=== PATIENT | female | born 1945 | race African-American/Black ===

== ENCOUNTER 2023-11-11 11:51 | Inpatient (IN) | payer OTHER ==
[2023-11-11] MEDS ORDERED: Sodium Chloride 0.9% 100 ML ONE (13:09)
[2023-11-11] MEDS ORDERED: Piperacillin/Tazobactam 4.5 GM VIAL ONE (13:09)
[2023-11-11] MEDS ORDERED: Piperacillin/Tazobactam 4.5 GM in Sodium Chloride 0.9% 100 ML IVPB SCH (13:15)
[2023-11-11 13:42] LABS: #Eosinphils 0.1 thou/uL (0.0-0.7); #Monocytes 1.2 thou/uL (0.11-0.59); #Neutrophils 13.6 thou/uL (1.40-6.50); %Basophils 0.2 % (0.0-1.0); %Eosinophils 0.4 % (0.0-10.0); %Lymphocytes 13.1 % (21.0-51.0); %Monocytes 6.9 % (0.0-10.0); %Neutrophils 78.6 % (42.0-75.0); Hematocrit 24.9 % (36.0-47.0); Hemoglobin 8.4 g/dL (12.0-16.0); Mean Corpuscular HGB CONC 33.7 g/dL (32.0-36.0); Mean Corpuscular Hemoglobin 27.5 pg (27.0-31.0); Mean Corpuscular Volume 81.6 fl (78.0-98.0); Mean Platelet Volume 9.8 fL (7.4-10.4); Platelet Count 256 10x3/uL (130-400); RBC Distribution Width 24.6 % (11.5-14.5); Red Blood Cell (RBC) Count 3.05 mill/uL (4.20-5.40); White Blood Cell (WBC) Count 17.3 10x3/uL (4.8-10.8)
[2023-11-11 14:14] LABS: ALT (SGPT) 14 U/L (8-55); AST (SGOT) 48 U/L (5-34); Albumin 1.9 g/dL (3.4-4.8); Alkaline Phosphatase 459 U/L (40-110); Anion Gap 11 mmol/L (10-20); BUN (Urea Nitrogen) 25 mg/dL (9.8-20.1); Bilirubin, Total 0.9 mg/dL (0.2-1.2); CRP (Inflammatory) 3.41 mg/dL (= or < 0.5); Calc. Creatinine Clearance 0 mL/min (70-130); Calcium 7.8 mg/dL (7.8-10.44); Carbon Dioxide 21 mmol/L (23-31); Chloride 114 mmol/L (98-107); Estimated GFR 21; Globulin 4.1 g/dL (2.4-3.5); Glucose 99 mg/dL (83-110); Potassium 3.1 mmol/L (3.5-5.1); Sodium 143 mmol/L (136-145)
[2023-11-11] MEDS ORDERED: Vancomycin (BATCH) 2 GM/500 ML BAG ONE (14:39)
[2023-11-11] MEDS ORDERED: HYDROcodone/Acetaminophen 5/325 mg Tablet PO PRN (15:32)
[2023-11-11] MEDS ORDERED: Acetaminophen 325 MG TAB PO PRN (15:32)
[2023-11-11] MEDS ORDERED: Ondansetron PF 4 MG/2 ML Vial IVP PRN (15:32)
[2023-11-11 17:34] LABS: Troponin I 0.025 ng/mL (< 0.028)
[2023-11-11] MEDS ORDERED: Metoprolol Tartrate 25 MG TAB PO SCH (21:00)
[2023-11-11] MEDS ORDERED: Famotidine 20 MG TAB PO SCH (21:00)
[2023-11-11] MEDS: Linezolid 600 MG in Premix 1 BAG IVPB SCH (21:58)
[2023-11-11] MEDS: Ascorbic Acid 500 mg Chewable Tablet PO SCH (22:11)
[2023-11-11] MEDS: Ferrous Sulfate 325 MG TAB PO SCH (22:12)
[2023-11-11] MEDS: Gabapentin 300 MG CAP PO SCH (22:12)
[2023-11-12] MEDS: Piperacillin/Tazobactam 3.375 GM in Sodium Chloride 0.9% 100 ML IVPB SCH ×2 (00:15→09:07)
[2023-11-12] MEDS ORDERED: Albumin 25% 25 GM (100 mL) BOT IVPB SCH (01:00)
[2023-11-12 01:20] LABS: #Monocytes 0.9 thou/uL (0.11-0.59); #Neutrophils 12.7 thou/uL (1.40-6.50); %Basophils 0.1 % (0.0-1.0); %Eosinophils 0.1 % (0.0-10.0); %Lymphocytes 10.3 % (21.0-51.0); %Monocytes 5.9 % (0.0-10.0); %Neutrophils 82.7 % (42.0-75.0); Hematocrit 24.6 % (36.0-47.0); Hemoglobin 7.9 g/dL (12.0-16.0); Mean Corpuscular HGB CONC 32.1 g/dL (32.0-36.0); Mean Corpuscular Hemoglobin 27.6 pg (27.0-31.0); Mean Platelet Volume 10.1 fL (7.4-10.4); Platelet Count 223 10x3/uL (130-400); RBC Distribution Width 24.6 % (11.5-14.5); Red Blood Cell (RBC) Count 2.86 mill/uL (4.20-5.40); White Blood Cell (WBC) Count 15.4 10x3/uL (4.8-10.8)
[2023-11-12 01:40] LABS: ALT (SGPT) 14 U/L (8-55); AST (SGOT) 51 U/L (5-34); Albumin 1.7 g/dL (3.4-4.8); Alkaline Phosphatase 463 U/L (40-110); Anion Gap 14 mmol/L (10-20); BUN (Urea Nitrogen) 27 mg/dL (9.8-20.1); Bilirubin, Total 0.9 mg/dL (0.2-1.2); Calc. Creatinine Clearance 0 mL/min (70-130); Calcium 7.6 mg/dL (7.8-10.44); Carbon Dioxide 17 mmol/L (23-31); Chloride 115 mmol/L (98-107); Estimated GFR 20; Glucose 124 mg/dL (83-110); Magnesium 2.4 mg/dL (1.6-2.6); Potassium 3.2 mmol/L (3.5-5.1); Protein, Total 5.7 g/dL (5.8-8.1); Sodium 143 mmol/L (136-145)
[2023-11-12 01:43] LABS: Troponin I 0.014 ng/mL (< 0.028)
[2023-11-12] MEDS ORDERED: Furosemide 40 MG (4 mL) VIAL SLOW IVP SCH (02:15)
[2023-11-12] MEDS ORDERED: NOREPINEPHRINE 8 MG/250 ML-D5W 250 ML IVPB SCH (02:15)
[2023-11-12] MEDS ORDERED: Glucagon 1 MG/ML KIT IM PRN (03:12)
[2023-11-12] MEDS ORDERED: Dextrose 5% in Water 1,000 ML IV PRN (03:12)
[2023-11-12] MEDS ORDERED: Dextrose 50% Abboject 50 ML SYRINGE SLOW IVP PRN (03:12)
[2023-11-12] MEDS ORDERED: HumaLOG 300 UNITS/3 ML VIAL SC PRN (03:12)
[2023-11-12] MEDS: Potassium Chloride 20 MEQ in Premix 1 BAG IVPB SCH ×2 (04:40→06:22)
[2023-11-12] MEDS: Albumin 25% 25 GM (100 mL) BOT IVPB SCH ×4 (04:40→23:33)
[2023-11-12] MEDS: Heparin 5,000 UNITS/ML VIAL SC SCH ×2 (08:55→23:33)
[2023-11-12] MEDS: Linezolid 600 MG in Premix 1 BAG IVPB SCH (08:55)
[2023-11-12] MEDS: Insulin Glargine 30 UNITS/0.3 ML VIAL SC SCH (08:55)
[2023-11-12] MEDS ORDERED: Non-Formulary Item 1 EACH (Zinc Gluconate [Zinc] 50 MG Tablet) PO SCH (09:00)
[2023-11-12] MEDS: Calcium Carbonate 600 MG TAB PO SCH (09:01)
[2023-11-12] MEDS: Ascorbic Acid 500 mg Chewable Tablet PO SCH ×2 (09:01→23:00)
[2023-11-12] MEDS: Ferrous Sulfate 325 MG TAB PO SCH ×2 (09:03→23:01)
[2023-11-12] MEDS: Gabapentin 300 MG CAP PO SCH ×3 (09:03→23:01)
[2023-11-12 09:41] LABS: #Monocytes 1.1 thou/uL (0.11-0.59); %Basophils 0.1 % (0.0-1.0); %Eosinophils 0.2 % (0.0-10.0); %Lymphocytes 14.3 % (21.0-51.0); %Monocytes 7.4 % (0.0-10.0); %Neutrophils 76.6 % (42.0-75.0); Hematocrit 20.6 % (36.0-47.0); Hemoglobin 6.9 g/dL (12.0-16.0); Mean Corpuscular HGB CONC 33.5 g/dL (32.0-36.0); Mean Corpuscular Hemoglobin 28.2 pg (27.0-31.0); Mean Corpuscular Volume 84.1 fl (78.0-98.0); Mean Platelet Volume 9.8 fL (7.4-10.4); Platelet Count 205 10x3/uL (130-400); RBC Distribution Width 24.3 % (11.5-14.5); Red Blood Cell (RBC) Count 2.45 mill/uL (4.20-5.40); White Blood Cell (WBC) Count 14.3 10x3/uL (4.8-10.8)
[2023-11-12] MEDS ORDERED: Lidocaine 1% PF 5 ML VIAL ONE (09:51)
[2023-11-12] MEDS ORDERED: PROPOFOL 20 ML ONE (09:51)
[2023-11-12] MEDS ORDERED: Rocuronium Bromide 10 MG/ML (10ML VIAL) ONE (09:51)
[2023-11-12] MEDS ORDERED: fentaNYL PF 100 MCG/2 ML SYRINGE ONE (09:51)
[2023-11-12] MEDS ORDERED: Midazolam HCl 2 mg/2 ml Vial ONE (09:54)
[2023-11-12] MEDS ORDERED: Heparin 10,000 UNITS/ 10 ML VIAL ONE (10:00)
[2023-11-12 10:01] LABS: Troponin I 0.017 ng/mL (< 0.028)
[2023-11-12 10:02] LABS: ALT (SGPT) 12 U/L (8-55); AST (SGOT) 40 U/L (5-34); Alkaline Phosphatase 417 U/L (40-110); Anion Gap 16 mmol/L (10-20); BUN (Urea Nitrogen) 27 mg/dL (9.8-20.1); Bilirubin, Total 1.6 mg/dL (0.2-1.2); Calc. Creatinine Clearance 25 mL/min (70-130); Calcium 8.1 mg/dL (7.8-10.44); Carbon Dioxide 17 mmol/L (23-31); Chloride 114 mmol/L (98-107); Estimated GFR 18; Globulin 3.2 g/dL (2.4-3.5); Glucose 146 mg/dL (83-110); Potassium 3.7 mmol/L (3.5-5.1); Protein, Total 6.2 g/dL (5.8-8.1); Sodium 143 mmol/L (136-145)
[2023-11-12 10:25] LABS: Anisocytosis MARKED = >30 cells HPF (0-5); Burr Cells SLIGHT = 2-5 cells HPF (0-1); CellaVision Operator ID LAB.KW3; Macrocytosis MARKED = >30 cells HPF (0-5); Platelet Adequacy Comment Platelets Normal; Polychromasia MODERATE = 3-4 cells HPF (0-2); Target Cells SLIGHT = 2-5 cells HPF (0-1)
[2023-11-12] MEDS ORDERED: PHENYLEPHRINE-NS 100 MCG/ML 10 ML SYRINGE ONE (10:39)
[2023-11-12] MEDS ORDERED: ePHEDrine Sulfate 50 MG/10 ML VIAL ONE (10:40)
[2023-11-12] MEDS ORDERED: Ondansetron PF 4 MG/2 ML Vial ONE (11:49)
[2023-11-12] MEDS ORDERED: SUGAMMADEX SODIUM 200 MG/2 ML VIAL ONE (11:50)
[2023-11-12] MEDS ORDERED: traMADol HCl 50 MG TAB PO PRN (12:28)
[2023-11-12] MEDS ORDERED: fentaNYL 50 mcg/mL 1 mL Vial SLOW IVP PRN (12:31)
[2023-11-12 14:24] LABS: Hematocrit 27.8 % (36.0-47.0); Hemoglobin 9.6 g/dL (12.0-16.0); Platelet Count 182 10x3/uL (130-400)
[2023-11-12] MEDS: cefTRIAXone\\ROCEPHIN 1 GM in Sodium Chloride 0.9% 100 ML IVPB SCH (16:29)
[2023-11-12 16:31] LABS: Anion Gap 13 mmol/L (10-20); BUN (Urea Nitrogen) 27 mg/dL (9.8-20.1); Calc. Creatinine Clearance 25 mL/min (70-130); Calcium 7.8 mg/dL (7.8-10.44); Carbon Dioxide 18 mmol/L (23-31); Chloride 116 mmol/L (98-107); Estimated GFR 18; Glucose 156 mg/dL (83-110); Potassium 3.4 mmol/L (3.5-5.1); Sodium 144 mmol/L (136-145)
[2023-11-12] MEDS: HumaLOG 300 UNITS/3 ML VIAL SC PRN (16:37)
[2023-11-12] MEDS ORDERED: Famotidine 20 MG TAB PO SCH (21:00)
[2023-11-12] MEDS: Sodium Bicarbonate Tab 325 MG TAB PO SCH (23:01)
[2023-11-13 04:18] LABS: #Eosinphils 0.1 thou/uL (0.0-0.7); #Monocytes 0.9 thou/uL (0.11-0.59); #Neutrophils 8.5 thou/uL (1.40-6.50); %Basophils 0.2 % (0.0-1.0); %Eosinophils 0.5 % (0.0-10.0); %Neutrophils 74.3 % (42.0-75.0); Hematocrit 21.6 % (36.0-47.0); Hemoglobin 7.5 g/dL (12.0-16.0); Mean Corpuscular HGB CONC 34.7 g/dL (32.0-36.0); Mean Corpuscular Hemoglobin 29.2 pg (27.0-31.0); Mean Platelet Volume 10.3 fL (7.4-10.4); Platelet Count 134 10x3/uL (130-400); RBC Distribution Width 20.4 % (11.5-14.5); Red Blood Cell (RBC) Count 2.57 mill/uL (4.20-5.40); White Blood Cell (WBC) Count 11.4 10x3/uL (4.8-10.8)
[2023-11-13 04:50] LABS: Anion Gap 17 mmol/L (10-20); BUN (Urea Nitrogen) 28 mg/dL (9.8-20.1); Calc. Creatinine Clearance 24 mL/min (70-130); Carbon Dioxide 18 mmol/L (23-31); Chloride 116 mmol/L (98-107); Estimated GFR 18; Glucose 87 mg/dL (83-110); Potassium 3.3 mmol/L (3.5-5.1); Sodium 148 mmol/L (136-145)
[2023-11-13 04:59] LABS: Albumin 3.4 g/dL (3.4-4.8); Phosphorus 2.6 mg/dL (2.3-4.7)
[2023-11-13] MEDS: Albumin 25% 25 GM (100 mL) BOT IVPB SCH ×3 (06:09→18:14)
[2023-11-13] MEDS ORDERED: Sodium Bicarbonate 100 MEQ in Dextrose 5% in Water 1,000 ML IV SCH (07:00)
[2023-11-13] MEDS ORDERED: Potassium Chloride 20 MEQ in Premix 1 BAG IVPB SCH (10:00)
[2023-11-13] MEDS: Ascorbic Acid 500 mg Chewable Tablet PO SCH ×2 (10:07→21:03)
[2023-11-13] MEDS: Gabapentin 300 MG CAP PO SCH ×3 (10:07→21:03)
[2023-11-13] MEDS: Insulin Glargine 30 UNITS/0.3 ML VIAL SC SCH (10:07)
[2023-11-13] MEDS: Ferrous Sulfate 325 MG TAB PO SCH ×2 (10:07→21:03)
[2023-11-13] MEDS: Calcium Carbonate 600 MG TAB PO SCH (10:07)
[2023-11-13] MEDS: Sodium Bicarbonate Tab 325 MG TAB PO SCH ×3 (10:08→21:03)
[2023-11-13] MEDS ORDERED: traMADol HCl 50 MG TAB PO PRN (10:13)
[2023-11-13] MEDS: Heparin 5,000 UNITS/ML VIAL SC SCH (10:25)
[2023-11-13 14:10] LABS: Hemoglobin 8.8 g/dL (12.0-16.0); Platelet Count 121 10x3/uL (130-400)
[2023-11-13 14:28] LABS: Anion Gap 15 mmol/L (10-20); BUN (Urea Nitrogen) 28 mg/dL (9.8-20.1); Calc. Creatinine Clearance 22 mL/min (70-130); Calcium 8.1 mg/dL (7.8-10.44); Carbon Dioxide 19 mmol/L (23-31); Chloride 113 mmol/L (98-107); Estimated GFR 17; Glucose 144 mg/dL (83-110); Potassium 3.4 mmol/L (3.5-5.1); Sodium 144 mmol/L (136-145)
[2023-11-13] MEDS ORDERED: Lactated Ringer's 500 ML IV SCH (16:00)
[2023-11-13 16:37] LABS: PTT 58.7 sec (22.9-36.1); Prothrombin Time 64.5 sec (12.0-14.7)
[2023-11-13 16:39] LABS: INR-International Normal Ratio 7.5
[2023-11-13] MEDS: cefTRIAXone\\ROCEPHIN 1 GM in Sodium Chloride 0.9% 100 ML IVPB SCH (17:03)
[2023-11-13] MEDS ORDERED: Phytonadione 10 MG in Sodium Chloride 0.9% 50 ML IVPB SCH (17:15)
[2023-11-13 20:20] LABS: Anion Gap 18 mmol/L (10-20); BUN (Urea Nitrogen) 28 mg/dL (9.8-20.1); Calc. Creatinine Clearance 21 mL/min (70-130); Calcium 8.1 mg/dL (7.8-10.44); Carbon Dioxide 17 mmol/L (23-31); Chloride 113 mmol/L (98-107); Estimated GFR 16; Glucose 150 mg/dL (83-110); Potassium 3.3 mmol/L (3.5-5.1); Sodium 145 mmol/L (136-145)
[2023-11-14] MEDS: Heparin 5,000 UNITS/ML VIAL SC SCH ×2 (01:19→09:00)
[2023-11-14 05:11] LABS: #Eosinphils 0.1 thou/uL (0.0-0.7); #Monocytes 1.1 thou/uL (0.11-0.59); #Neutrophils 10.6 thou/uL (1.40-6.50); %Basophils 0.2 % (0.0-1.0); %Eosinophils 0.6 % (0.0-10.0); %Lymphocytes 13.3 % (21.0-51.0); %Monocytes 7.9 % (0.0-10.0); %Neutrophils 76.1 % (42.0-75.0); Hemoglobin 9.1 g/dL (12.0-16.0); Mean Corpuscular Hemoglobin 29.6 pg (27.0-31.0); Mean Corpuscular Volume 84.7 fl (78.0-98.0); Mean Platelet Volume 10.6 fL (7.4-10.4); Platelet Count 123 10x3/uL (130-400); RBC Distribution Width 19.9 % (11.5-14.5); Red Blood Cell (RBC) Count 3.07 mill/uL (4.20-5.40)
[2023-11-14 06:11] LABS: Albumin 3.7 g/dL (3.4-4.8)
[2023-11-14 06:18] LABS: Anion Gap 18 mmol/L (10-20); BUN (Urea Nitrogen) 28 mg/dL (9.8-20.1); CRP (Inflammatory) 3.65 mg/dL (= or < 0.5); Calc. Creatinine Clearance 20 mL/min (70-130); Calcium 8.1 mg/dL (7.8-10.44); Carbon Dioxide 17 mmol/L (23-31); Chloride 114 mmol/L (98-107); Estimated GFR 15; Glucose 129 mg/dL (83-110); Potassium 3.3 mmol/L (3.5-5.1); Sodium 146 mmol/L (136-145)
[2023-11-14] MEDS ORDERED: Albumin 25% 25 GM (100 mL) BOT IVPB SCH (07:30)
[2023-11-14] MEDS ORDERED: Sodium Bicarbonate 100 MEQ in Dextrose 5% in Water 1,000 ML IV SCH (08:00)
[2023-11-14] MEDS: Gabapentin 300 MG CAP PO SCH ×3 (09:00→20:44)
[2023-11-14] MEDS: Potassium Bicarbonate/Cit Ac 20 MEQ TAB PO SCH ×2 (09:00→11:30)
[2023-11-14] MEDS: Sodium Bicarbonate Tab 325 MG TAB PO SCH ×3 (09:00→20:48)
[2023-11-14] MEDS: Pantoprazole 40 MG VIAL IVP SCH (09:00)
[2023-11-14] MEDS: Calcium Carbonate 600 MG TAB PO SCH (09:00)
[2023-11-14] MEDS: Ferrous Sulfate 325 MG TAB PO SCH ×2 (09:00→20:44)
[2023-11-14] MEDS: Ascorbic Acid 500 mg Chewable Tablet PO SCH ×2 (09:00→20:44)
[2023-11-14 10:27] LABS: Platelet Count 98 10x3/uL (130-400)
[2023-11-14 10:44] LABS: INR-International Normal Ratio 4.2; PTT 50.8 sec (22.9-36.1); Prothrombin Time 40.6 sec (12.0-14.7)
[2023-11-14 10:57] LABS: D-Dimer Test 0.45 *mcg/mL (0.27-0.43); Fibrinogen 231 mg/dL (253-463)
[2023-11-14] MEDS: HumaLOG 300 UNITS/3 ML VIAL SC PRN ×2 (11:55→18:42)
[2023-11-14] MEDS: Albumin 25% 25 GM (100 mL) BOT IVPB SCH ×3 (13:06→23:34)
[2023-11-14 13:16] LABS: Creatinine, Urine 58.49 mg/dL (47-110); Sodium, Urine 31 mmol/L (Not Available); Urea Nitrogen, Random Urine Less than 40 mg/dl
[2023-11-14 13:41] LABS: Protein, Urine Random Quant 428 mg/dL (1-14)
[2023-11-14 17:00] LABS: Bilirubin Negative (Negative); Blood, Urine 3+ (Negative); Clarity Turbid (Clear); Glucose, Urine (Dipstick) 30 mg/dL (Negative); Ketone, Urine Negative (Negative); Leukocyte 500 Leu/uL (Negative); Nitrite Negative (Negative); Protein, Urine (Dipstick) 300 mg/dL (Neg-Trace); RBC/HPF 21-50 HPF (0-3); Specific Gravity, Urine 1.023 (1.002-1.036); Squamous Epithelial 0-3 HPF (0-3); Urobilinogen Normal mg/dL (Less than 2); WBC/HPF Greater than 50 HPF (0-3)
[2023-11-14] MEDS: cefTRIAXone\\ROCEPHIN 1 GM in Sodium Chloride 0.9% 100 ML IVPB SCH (17:04)
[2023-11-14 17:13] LABS: Bacteria/HPF 2+ HPF (None Seen)
[2023-11-14] MEDS: Multivit, Therapeutic 1 TAB PO SCH (20:47)
[2023-11-14] MEDS: Saccharomyces boulardii 250 MG CAP PO SCH (23:32)
[2023-11-15 05:05] LABS: #Eosinphils 0.1 thou/uL (0.0-0.7); #Neutrophils 9.1 thou/uL (1.40-6.50); %Basophils 0.1 % (0.0-1.0); %Eosinophils 0.5 % (0.0-10.0); %Lymphocytes 15.2 % (21.0-51.0); %Monocytes 7.9 % (0.0-10.0); %Neutrophils 74.9 % (42.0-75.0); Hemoglobin 7.4 g/dL (12.0-16.0); Mean Corpuscular HGB CONC 35.2 g/dL (32.0-36.0); Mean Corpuscular Hemoglobin 30.3 pg (27.0-31.0); Mean Corpuscular Volume 86.1 fl (78.0-98.0); Mean Platelet Volume 11.4 fL (7.4-10.4); Platelet Count 95 10x3/uL (130-400); RBC Distribution Width 20.7 % (11.5-14.5); Red Blood Cell (RBC) Count 2.44 mill/uL (4.20-5.40); White Blood Cell (WBC) Count 12.1 10x3/uL (4.8-10.8)
[2023-11-15] MEDS: Albumin 25% 25 GM (100 mL) BOT IVPB SCH (05:21)
[2023-11-15 05:32] LABS: ALT (SGPT) 13 U/L (8-55); AST (SGOT) 54 U/L (5-34); Albumin 4.3 g/dL (3.4-4.8); Alkaline Phosphatase 317 U/L (40-110); Anion Gap 21 mmol/L (10-20); BUN (Urea Nitrogen) 30 mg/dL (9.8-20.1); Bilirubin, Total 2.8 mg/dL (0.2-1.2); Calc. Creatinine Clearance 17 mL/min (70-130); Calcium 8.5 mg/dL (7.8-10.44); Carbon Dioxide 17 mmol/L (23-31); Chloride 111 mmol/L (98-107); Estimated GFR 12; Globulin 1.8 g/dL (2.4-3.5); Glucose 118 mg/dL (83-110); Magnesium 1.9 mg/dL (1.6-2.6); Phosphorus 3.2 mg/dL (2.3-4.7); Potassium 3.7 mmol/L (3.5-5.1); Protein, Total 6.1 g/dL (5.8-8.1); Sodium 145 mmol/L (136-145)
[2023-11-15] MEDS ORDERED: Folic Acid/Vit B Comp W-C PO SCH (09:00)
[2023-11-15] MEDS ORDERED: Sodium Bicarbonate 150 MEQ in Dextrose 5% in Water 1,000 ML IV SCH (09:30)
[2023-11-15] MEDS: Ascorbic Acid 500 mg Chewable Tablet PO SCH ×3 (10:00→21:21)
[2023-11-15] MEDS: Gabapentin 300 MG CAP PO SCH ×2 (10:00→11:26)
[2023-11-15] MEDS: Calcium Carbonate 600 MG TAB PO SCH ×2 (11:25→11:26)
[2023-11-15] MEDS: Sodium Bicarbonate Tab 325 MG TAB PO SCH ×4 (11:25→21:21)
[2023-11-15] MEDS: Ferrous Sulfate 325 MG TAB PO SCH ×3 (11:26→21:21)
[2023-11-15] MEDS: Docusate 100 MG CAP PO SCH ×3 (11:26→21:21)
[2023-11-15] MEDS: Pantoprazole 40 MG VIAL IVP SCH (11:28)
[2023-11-15] MEDS ORDERED: Furosemide 100 MG (10 mL) VIAL SLOW IVP SCH (14:00)
[2023-11-15 16:01] LABS: Hematocrit 19.7 % (36.0-47.0); Hemoglobin 6.9 g/dL (12.0-16.0); Mean Corpuscular Hemoglobin 30.3 pg (27.0-31.0); Mean Corpuscular Volume 86.4 fl (78.0-98.0); Mean Platelet Volume 11.1 fL (7.4-10.4); RBC Distribution Width 20.8 % (11.5-14.5); Red Blood Cell (RBC) Count 2.28 mill/uL (4.20-5.40); White Blood Cell (WBC) Count 16.7 10x3/uL (4.8-10.8)
[2023-11-15 16:06] LABS: Platelet Count 88 10x3/uL (130-400)
[2023-11-15] MEDS: cefTRIAXone\\ROCEPHIN 1 GM in Sodium Chloride 0.9% 100 ML IVPB SCH (16:31)
[2023-11-15] MEDS: Multivit, Therapeutic 1 TAB PO SCH (21:21)
[2023-11-15] MEDS: Saccharomyces boulardii 250 MG CAP PO SCH (21:21)
[2023-11-16 04:31] LABS: #Neutrophils 17.6 thou/uL (1.40-6.50); %Lymphocytes 6.4 % (21.0-51.0); %Monocytes 4.9 % (0.0-10.0); %Neutrophils 87.2 % (42.0-75.0); Hematocrit 23.2 % (36.0-47.0); Hemoglobin 8.2 g/dL (12.0-16.0); Mean Corpuscular HGB CONC 35.3 g/dL (32.0-36.0); Mean Corpuscular Hemoglobin 31.4 pg (27.0-31.0); Mean Corpuscular Volume 88.9 fl (78.0-98.0); Mean Platelet Volume 11.5 fL (7.4-10.4); RBC Distribution Width 18.6 % (11.5-14.5); Red Blood Cell (RBC) Count 2.61 mill/uL (4.20-5.40); White Blood Cell (WBC) Count 20.2 10x3/uL (4.8-10.8)
[2023-11-16 04:41] LABS: Platelet Count 77 10x3/uL (130-400)
[2023-11-16 04:54] LABS: Iron 56 ug/dL (50-170)
[2023-11-16 05:49] LABS: ALT (SGPT) 38 U/L (8-55); AST (SGOT) 319 U/L (5-34); Albumin 3.8 g/dL (3.4-4.8); Alkaline Phosphatase 295 U/L (40-110); Anion Gap 26 mmol/L (10-20); BUN (Urea Nitrogen) 32 mg/dL (9.8-20.1); Bilirubin, Total 5.1 mg/dL (0.2-1.2); Calc. Creatinine Clearance 15 mL/min (70-130); Calcium 8.6 mg/dL (7.8-10.44); Carbon Dioxide 15 mmol/L (23-31); Chloride 107 mmol/L (98-107); Estimated GFR 11; Glucose 120 mg/dL (83-110); Potassium 3.9 mmol/L (3.5-5.1); Protein, Total 5.8 g/dL (5.8-8.1); Sodium 144 mmol/L (136-145)
[2023-11-16 11:21] LABS: HBSAg Index 0.16 S/CO (0-0.99); Hep B Surf Ag Non-Reactive S/CO (NonReactive); Hep C IgG Ab Non-Reactive S/CO (NonReactive); Hep C Index 0.04 S/CO (0-0.79)
[2023-11-16 11:27] LABS: HBSAB Concentration 84.08 mIU/mL; Hep B Core Total Ab Reactive (NonReactive); Hep B Core Total Index 3.89 S/CO (0-0.79); Hep B Surf AB Reactive (NonReactive)
[2023-11-16] MEDS: Ferrous Sulfate 325 MG TAB PO SCH ×2 (11:56→22:08)
[2023-11-16] MEDS: Calcium Carbonate 600 MG TAB PO SCH (11:56)
[2023-11-16] MEDS: Ascorbic Acid 500 mg Chewable Tablet PO SCH ×2 (11:56→22:08)
[2023-11-16] MEDS: Gabapentin 300 MG CAP PO SCH (11:56)
[2023-11-16] MEDS: Docusate 100 MG CAP PO SCH ×2 (11:56→22:09)
[2023-11-16] MEDS: Sodium Bicarbonate Tab 325 MG TAB PO SCH ×3 (11:57→22:08)
[2023-11-16] MEDS: Pantoprazole 40 MG VIAL IVP SCH (11:57)
[2023-11-16] MEDS ORDERED: Meropenem 1 GM in Sodium Chloride 0.9% 100 ML IVPB SCH (12:00)
[2023-11-16] MEDS ORDERED: Linezolid 600 MG in Premix 1 BAG IVPB SCH (12:00)
[2023-11-16 12:07] VITALS: BMI 34.2
[2023-11-16 15:55] LABS: Iron Binding Capacity, Total 31 mcg/dL (265-497)
[2023-11-16] MEDS ORDERED: Meropenem 500 MG in Sodium Chloride 0.9% 100 ML IVPB SCH ×2 (20:00→21:00)
[2023-11-16] MEDS: Saccharomyces boulardii 250 MG CAP PO SCH (22:07)
[2023-11-16] MEDS: Multivit, Therapeutic 1 TAB PO SCH (22:09)
[2023-11-17] MEDS: Ferrous Sulfate 325 MG TAB PO SCH (07:39)
[2023-11-17] MEDS: Docusate 100 MG CAP PO SCH (07:39)
[2023-11-17] MEDS: Sodium Bicarbonate Tab 325 MG TAB PO SCH (07:40)
[2023-11-17] MEDS: Gabapentin 300 MG CAP PO SCH (07:40)
[2023-11-17] MEDS: Ascorbic Acid 500 mg Chewable Tablet PO SCH (07:40)
[2023-11-17] MEDS: Calcium Carbonate 600 MG TAB PO SCH (07:40)
[2023-11-17] MEDS: Pantoprazole 40 MG VIAL IVP SCH (08:22)
[2023-11-17 09:30] VITALS: BP 100/65; TEMP 97.2
== END 2023-11-17 13:13 | disposition hospice, home (50) | DRG 474 ==
LOC: ERS 11:51 → SUATTDRO 11:51 → 2SE 15:31 → CCU 11-12 02:24 → T4-A 11-16 23:31
PROVIDERS: ADMIT Internal Medicine; ATTEND Family Medicine
PROC: 05HY33Z Insertion of Infusion Device into Upper Vein, Percutaneous Approach (ICD-10-PCS; 2023-11-11)
PROC: 3E03329 Introduction of Other Anti-infective into Peripheral Vein, Percutaneous Approach (ICD-10-PCS; 2023-11-11)
PROC: 30233N1 Transfusion of Nonautologous Red Blood Cells into Peripheral Vein, Percutaneous Approach (ICD-10-PCS; 2023-11-12)
PROC: 30233J1 Transfusion of Nonautologous Serum Albumin into Peripheral Vein, Percutaneous Approach (ICD-10-PCS; 2023-11-12)
PROC: 3E033XZ Introduction of Vasopressor into Peripheral Vein, Percutaneous Approach (ICD-10-PCS; 2023-11-12)
PROC: 0Y6D0Z3 Detachment at Left Upper Leg, Low, Open Approach (ICD-10-PCS; principal; 2023-11-13)
DX: T87.44 Infection of amputation stump, left lower extremity (principal); A41.9 Sepsis, unspecified organism; L89.153 Pressure ulcer of sacral region, stage 3; G93.41 Metabolic encephalopathy; I21.A1 Myocardial infarction type 2; J18.9 Pneumonia, unspecified organism; I50.23 Acute on chronic systolic (congestive) heart failure; R65.21 Severe sepsis with septic shock; D65 Disseminated intravascular coagulation [defibrination syndrome]; N17.9 Acute kidney failure, unspecified; E87.0 Hyperosmolality and hypernatremia; M86.8X8 Other osteomyelitis, other site; Z16.21 Resistance to vancomycin; D62 Acute posthemorrhagic anemia; I13.0 Hypertensive heart and chronic kidney disease with heart failure and stage 1 through stage 4 chronic kidney disease, or unspecified chronic kidney disease; E78.5 Hyperlipidemia, unspecified; N18.2 Chronic kidney disease, stage 2 (mild); E11.22 Type 2 diabetes mellitus with diabetic chronic kidney disease; E87.6 Hypokalemia; M19.90 Unspecified osteoarthritis, unspecified site; M60.9 Myositis, unspecified; D63.1 Anemia in chronic kidney disease; Y83.8 Other surgical procedures as the cause of abnormal reaction of the patient, or of later complication, without mention of misadventure at the time of the procedure; D50.9 Iron deficiency anemia, unspecified; Z79.899 Other long term (current) drug therapy; Z79.4 Long term (current) use of insulin; Z79.01 Long term (current) use of anticoagulants; Z98.890 Other specified postprocedural states; Z98.51 Tubal ligation status
CPT/HCPCS: 36415; 36416; 36430; 70450; 71045; 76770; 80048; 80053; 81001; 82040; 82550; 82570; 82728; 83540; 83550; 83605; 83735; 83880; 84100; 84156; 84300; 84484; 84540; 85025; 85049; 85300; 85362; 85379; 85384; 85610; 85730; 86140; 86704; 86850; 86900; 86901; 87040; 87070; 87077; 87186; 87205; 88307; 93005; 93010; 96365; 96366; 96367; 97139; C1751; C9113; J0696; J1642; J1644; J1815; J1940; J2020; J2185; J2250; J2405; J2543; J2704; J3010; J3370; J3430; J3480; J3490; J7070; J7120; P9016; P9047